=== PATIENT | male | born 1950 | race Hispanic/Latino ===

== ENCOUNTER 2017-08-20 09:00 | Emergency (ER) | payer BC ==
[~2017-08-20] VITALS: Ht 171.4 cm; Wt 70.3 kg
[2017-08-20] MEDS ORDERED: KEFLEX500 MG PO (11:08)
[2017-08-20] MEDS ORDERED: NAPROSYN500 MG PO (11:08)
[2017-08-20 11:22] VITALS: BP 145/82
== END 2017-08-20 11:22 | disposition home or self-care (01) ==
LOC: EME 09:00
DX: E11.628 Type 2 diabetes mellitus with other skin complications (principal); L08.9 Local infection of the skin and subcutaneous tissue, unspecified; B35.1 Tinea unguium; Z87.891 Personal history of nicotine dependence
CPT/HCPCS: 73630; 99281; 99282

== ENCOUNTER 2017-08-24 16:06 | Inpatient (IN) | payer BC ==
[~2017-08-24] VITALS: Ht 165.1 cm; Wt 74.4 kg
[~2017-08-24 16:06] MED LIST: KEFLEX500 MG PO; NAPROSYN500 MG PO
[2017-08-24 17:00] LABS: BASOPHIL (%) 0.4 % (0-1); EOSINOPHIL (%) 0.5 % (0-5); HEMATOCRIT 34.7 % (38.0-50.0); HEMOGLOBIN 12.3 G/DL (12.5-16.6); IMMATURE GRANULOCYTE (%) 0.3 % (0.0-0.7); LYMPHOCYTE (%) 12.4 % (15-42); MCH 30.5 PG (29.0-34.0); MCHC 35.4 G/DL (30.0-36.0); MCV 86.1 FL (86-99); MONOCYTE (%) 5.5 % (3-12); MONOCYTE COUNT 0.4 K/uL (0-0.8); NEUTROPHIL (%) 80.9 % (45-76); NEUTROPHIL COUNT 6.5 K/uL (1.8-6.4); PLATELET COUNT 196 K/uL (156-360); RBC DIS.WIDTH-CV 11.5 % (11.8-14.6); RBC DIS.WIDTH-SD 35.9 % (39-53); RED BLOOD COUNT 4.03 M/uL (4.00-5.50)
[2017-08-24 17:09] LABS: CHLORIDE 100 mEq/L (99-109); POTASSIUM 3.7 mEq/L (3.7-5.4); SODIUM 137 mEq/L (136-147)
[2017-08-24 17:14] LABS: GFR ESTIMATE (CALCULATED) > 59 mL/min/ (58.99-99999)
[2017-08-24 17:15] LABS: UREA NITROGEN (BUN) 8 mg/dL (9-23)
[2017-08-24 17:17] LABS: GLUCOSE 414 mg/dL (70-99)
[2017-08-24] MEDS ORDERED: NAPROXEN500 MG PO (17:20)
[2017-08-24] MEDS ORDERED: CEPHALEXIN500 MG PO (17:20)
[2017-08-24] MEDS ORDERED: SIMVASTATIN10 MG PO (17:21)
[2017-08-24] MEDS ORDERED: NOVOLOG PE100 UNITS/ SC (17:21)
[2017-08-24] MEDS ORDERED: LISINOPRIL5 MG PO (17:21)
[2017-08-24] MEDS ORDERED: ASPIR 8181 M1 PO (17:21)
[2017-08-24] MEDS ORDERED: GLIMEPIRIDE4 MG PO (17:33)
[2017-08-24 18:40] LABS: C-REACTIVE PROTEIN 80.2 MG/L (0-10)
[2017-08-24 19:37] VITALS: BP 148/79
[2017-08-24 23:50] VITALS: BP 145/82
[2017-08-25 03:57] VITALS: BP 152/80
[2017-08-25 06:12] LABS: BASOPHIL (%) 0.4 % (0-1); EOSINOPHIL (%) 1.6 % (0-5); EOSINOPHIL COUNT 0.1 K/uL (0-0.3); HEMATOCRIT 31.5 % (38.0-50.0); HEMOGLOBIN 10.9 G/DL (12.5-16.6); IMMATURE GRANULOCYTE (%) 0.2 % (0.0-0.7); LYMPHOCYTE (%) 25.3 % (15-42); LYMPHOCYTE COUNT 1.3 K/uL (1.0-2.8); MCH 30.4 PG (29.0-34.0); MCHC 34.6 G/DL (30.0-36.0); MONOCYTE (%) 7.6 % (3-12); MONOCYTE COUNT 0.4 K/uL (0-0.8); NEUTROPHIL (%) 64.9 % (45-76); NEUTROPHIL COUNT 3.2 K/uL (1.8-6.4); PLATELET COUNT 161 K/uL (156-360); RBC DIS.WIDTH-CV 11.7 % (11.8-14.6); RBC DIS.WIDTH-SD 37.7 % (39-53); RED BLOOD COUNT 3.58 M/uL (4.00-5.50)
[2017-08-25 06:34] LABS: CHLORIDE 106 MEQ/L (99-109); CREATININE 0.8 MG/DL (0.6-1.3); GFR ESTIMATE (CALCULATED) > 59 mL/min/ (58.99-99999); GLUCOSE 320 mg/dL (70-99); POTASSIUM 4.1 MEQ/L (3.7-5.4); SODIUM 140 MEQ/L (136-147); UREA NITROGEN (BUN) 9 mg/dL (9-23)
[2017-08-25 06:42] VITALS: BP 140/66
[2017-08-25 12:08] VITALS: BP 139/77
[2017-08-25 15:27] VITALS: BP 161/60
[2017-08-25 19:55] VITALS: BP 150/67
[2017-08-25 23:11] VITALS: BP 153/68
[2017-08-26 07:01] LABS: HEMATOCRIT 31.1 % (38.0-50.0); MCH 30.9 PG (29.0-34.0); MCHC 35.4 G/DL (30.0-36.0); MCV 87.4 FL (86-99); PLATELET COUNT 182 K/uL (156-360); RBC DIS.WIDTH-CV 11.9 % (11.8-14.6); RBC DIS.WIDTH-SD 37.8 % (39-53); RED BLOOD COUNT 3.56 M/uL (4.00-5.50); WHITE BLOOD COUNT 5.3 K/uL (4.1-10.2)
[2017-08-26 07:27] LABS: CHLORIDE 105 MEQ/L (99-109); CREATININE 0.8 MG/DL (0.6-1.3); GFR ESTIMATE (CALCULATED) > 59 mL/min/ (58.99-99999); GLUCOSE 164 mg/dL (70-99); POTASSIUM 4.1 MEQ/L (3.7-5.4); SODIUM 141 MEQ/L (136-147); UREA NITROGEN (BUN) 7 mg/dL (9-23)
[2017-08-26 08:15] VITALS: BP 162/72
[2017-08-26 09:51] LABS: HEMOGLOBIN A1c (GLYCOHEMOGLOB) 10.2 % (Below 5.7)
[2017-08-26 13:37] VITALS: BP 138/61
[2017-08-26 16:00] VITALS: BP 146/67
[2017-08-26 23:48] VITALS: BP 146/77
[2017-08-27 07:12] LABS: HEMATOCRIT 33.1 % (38.0-50.0); HEMOGLOBIN 11.6 G/DL (12.5-16.6); MCH 30.3 PG (29.0-34.0); MCV 86.4 FL (86-99); PLATELET COUNT 204 K/uL (156-360); RBC DIS.WIDTH-CV 11.5 % (11.8-14.6); RBC DIS.WIDTH-SD 35.9 % (39-53); RED BLOOD COUNT 3.83 M/uL (4.00-5.50); WHITE BLOOD COUNT 4.4 K/uL (4.1-10.2)
[2017-08-27 07:31] LABS: CHLORIDE 101 MEQ/L (99-109); CREATININE 0.9 MG/DL (0.6-1.3); GFR ESTIMATE (CALCULATED) > 59 mL/min/ (58.99-99999); POTASSIUM 4.1 MEQ/L (3.7-5.4); SODIUM 139 MEQ/L (136-147); UREA NITROGEN (BUN) 7 mg/dL (9-23)
[2017-08-27 07:32] LABS: GLUCOSE 280 mg/dL (70-99)
[2017-08-27 08:00] VITALS: BP 162/79
[2017-08-27 16:00] VITALS: BP 182/84
[2017-08-27 21:00] VITALS: BP 125/75
[2017-08-27 22:58] VITALS: BP 140/63
[2017-08-28 04:00] VITALS: BP 115/75
[2017-08-28 07:15] VITALS: BP 161/74
[2017-08-28 16:32] VITALS: BP 129/60
[2017-08-28 23:32] VITALS: BP 133/63
[2017-08-29 07:25] VITALS: BP 123/73
[2017-08-29] MEDS ORDERED: AUGMENTIN875 MG PO (09:55)
[2017-08-29] MEDS ORDERED: SIMVASTATIN40 MG PO (09:55)
== END 2017-08-29 14:14 | disposition home or self-care (01) | DRG 240 ==
LOC: EME 16:06 → 2EAST 17:25 → ENRESERV 17:25 → EDOF 17:25 → ENRESERV 18:03 → 2EAST 19:23 → ENPENDDIS 08-29 → 2EAST 08-29 14:14
PROVIDERS: Hospitalist; Internal Medicine; Physician Assistant
PROC: 0Y6M0ZD Detachment at Right Foot, Partial 4th Ray, Open Approach (ICD-10-PCS; principal; 2017-08-27)
DX: E11.52 Type 2 diabetes mellitus with diabetic peripheral angiopathy with gangrene (principal); M86.171 Other acute osteomyelitis, right ankle and foot; L03.031 Cellulitis of right toe; E11.628 Type 2 diabetes mellitus with other skin complications; E11.42 Type 2 diabetes mellitus with diabetic polyneuropathy; E11.65 Type 2 diabetes mellitus with hyperglycemia; R68.83 Chills (without fever); M79.1 Myalgia; S91.114A Laceration without foreign body of right lesser toe(s) without damage to nail, initial encounter; E11.69 Type 2 diabetes mellitus with other specified complication; Z87.891 Personal history of nicotine dependence; I10 Essential (primary) hypertension; B95.61 Methicillin susceptible Staphylococcus aureus infection as the cause of diseases classified elsewhere; Z79.4 Long term (current) use of insulin
CPT/HCPCS: 73630; 80048; 80202; 82948; 83036; 83605; 83735; 85025; 85027; 86140; 87040; 87070; 87075; 87076; 87077; 87147; 87185; 87186; 87205; 88305; 88311; 93880; 99281; 99285; J0690; J1650; J1815; J2250; J2270; J2405; J2543; J3010; J3370; J7030; J7050